=== PATIENT | male | born 1945 | race Caucasian/White ===

== ENCOUNTER → 2017-05-10 | Outpatient (CLI) | payer OTHER ==
--- NOTE | ~2017-05-10 | US37 ---
[facility] A Service of [facility] & [facility] RADIOLOGY TEXT RESULTS PATIENT: TAMMI ISAAC LOCATION: CNIV : 43 UNIT #: [id number] AGE: [address]: Bianca Lew MD SEX: M ORDER DR: [id number] [facility] [address] [place], [place] [address] [id number] O MR#: [id number] Acc #: [id number] NAME: TAMMI ISAAC : 1945 SEX: M STUDY DATE/TIME: 05/10/2017 14:15 UNIT: CNIV ROOM: STUDY DESCRIPTION: US Carotid W/Doppler Bilateral Attending Physician: Bianca Lew M.D. Referring Physician: Bianca Lew M.D. Ordering Physician: Bianca Lew M.D. Primary Care Physician: Bianca Lew M.D. MEDICAL IMAGING REPORT This report is preliminary unless electronic signature is present DATE OF EXAMINATION 05/10/2017 EXAMINATION Bilateral carotid duplex. CLINICAL HISTORY Carotid bruit. FINDINGS There is patent flow seen throughout the right common carotid, internal carotid, and external carotid arteries. There is some heterogeneous plaque seen at the mid-portion of the right common carotid artery, extending to the carotid bifurcation, where it appears irregular, heterogeneous and echogenic. This plaque extends into the internal and external carotid arteries. The right common carotid artery peak velocity is 78 cm/sec. The right internal carotid artery peak systolic over end-diastolic velocities are: Proximal 106/30 cm/sec, mid 192/76 cm/sec, distal 180/70 cm/sec. The right external carotid artery peak velocity is 185 cm/sec, and vertebral artery 105 cm/sec. The right ICA:CCA ratio is 2.48. There is patent flow seen throughout the left common carotid, internal carotid, and external carotid arteries. There is diffuse atherosclerosis noted at the left common carotid artery, at the left carotid bifurcation, there is dense, irregular, and echogenic plaque that is seen, with extension to the external carotid artery and internal carotid artery. The left common carotid artery peak velocity is 55 cm/sec, the left internal carotid artery peak systolic velocity over end-diastolic velocities are: Proximal 113/40 cm/sec, mid 354/109 cm/sec, distal 136/33 cm/sec. The right external carotid artery peak velocity is 113 cm/sec, vertebral artery 60 cm/sec. The left ICA:CCA ratio is 6.43. [facility] A Service of [facility] & [facility] RADIOLOGY TEXT RESULTS PATIENT: TAMMI ISAAC LOCATION: CNIV : 43 UNIT #: [id number] AGE: [address]: Bianca Lew MD SEX: M ORDER DR: IMPRESSION 1. This is an abnormal study. The right carotid artery has moderate atherosclerosis, consistent with 50 to 69% stenosis by duplex criteria. This represents a significant increase from the previous 08/2012 study. 2. The left carotid artery has a high-grade stenosis, likely greater than 80% by duplex criteria. This represents an increase from the 08/2012 study. 3. Vertebral flow is antegrade bilaterally. Dictated by... Guanako Pelayo M.D. THIS IS AN ELECTRONICALLY VERIFIED REPORT Guanako Pelayo M.D. at 05/15/2017 8:57 AM MEAGAN/arely TD: 05/10/2017 19:59 JOB #: [id number] MEDICAL IMAGING REPORT Page 1 of 1 COPY
== END | disposition home or self-care (01) ==
LOC: CNIV 13:21
DX: R09.89 Other specified symptoms and signs involving the circulatory and respiratory systems (principal); R94.8 Abnormal results of function studies of other organs and systems; I65.23 Occlusion and stenosis of bilateral carotid arteries
CPT/HCPCS: 93880